=== PATIENT | male | born 1965 | race Caucasian/White ===

== ENCOUNTER 2016-09-22 08:44 | Emergency (ER) | payer BC ==
[~2016-09-22] VITALS: Ht 175.3 cm; Wt 94.8 kg
[~2016-09-22 08:44] MED LIST: ACET-1256 PO; CIPR-255 PO; MULT-506 PO; PRLSR20 PO
[2016-09-22 08:48] VITALS: TEMP 37.2; Ht 175.3 cm; Wt 94.8 kg
[2016-09-22] MEDS ORDERED: KETOROLAC TROMETHAMINE 30 MG/ML VIAL IV STA (09:07)
[2016-09-22] MEDS ORDERED: SODIUM CHLORIDE 0.9% 1000ML 1,000 ML IV STA (09:07)
[2016-09-22] MEDS ORDERED: ONDANSETRON INJ 2 MG/ML 2 ML VIAL IV STA (09:07)
--- NOTE | 2016-09-22 09:11 | EMERGENCY ROOM VISIT NOTE ---
History Report prepared by Andrea: Ethan Portillo Under the Supervision of: Brenda RankinO. First contact with patient: 08:53 Chief Complaint: ILLNESS Stated Complaint: FEVER, PAIN IN LOWER BACK/GROIN AREA X 4 DAYS History of Present Illness The patient is a 51 year old male who presents to the Emergency Room with complaints of flank pain. The patient states that 3-4 days ago he started noticing subjective fever. He has been taking Motrin and Tylenol with good relief of the symptoms but he started noticing lower back pain earlier today. He states the pain is mostly in the lower back but goes around to his right groin. He denies having any rash. He states his feels similar to when he is had kidney stones in the past. He states he's had some urinary symptoms including frequency as well as dysuria. He denies having any vomiting but did notice nausea. He denies having any chest pain but did experience some cough recently he also had some rhinorrhea could be consistent with an upper respiratory infection but when the back pain started he felt was consistent with a kidney stones we presented to the emergency department today. He states the pain is mild at this time. It is not worsened with movement. He denies having any radicular symptoms such as lower extremity numbness or weakness. The patient does not have a headache. He currently does not have a primary care physician because his primary care physician retired but tried to set up an appointment and was not able to set up an appointment quickly enough. Source of History: patient Onset: 3-4 days ago Position: other (flank) Symptom Intensity: mild Associated Symptoms: + back pain, + cough, + fevers, + nausea, + urinary symptoms, No chest pain, No headache, No numbness, No rash, No vomiting, No weakness Review of Systems See HPI for pertinent positives & negatives. A total of 10 systems reviewed and were otherwise negative. Past Medical & Surgical Medical Problems: (1) Diverticular disease of colon (2) Diverticulitis (3) s/p appendectomy (4) s/p partial colectomy Family History Cancer Diabetes mellitus Gallbladder disease Hypertension Kidney disease Kidney stones Social History Smoking Status: Never Smoker Alcohol Use: occasionally Drug Use: none Marital Status: Occupation Status: employed Current/Historical Medications Scheduled Multivitamin (Multivitamin), 1 TAB PO DAILY Omeprazole (Prilosec), 20 MG PO DAILY Ranitidine Hcl (Zantac), 150 MG PO BID Scheduled PRN Acetaminophen (Tylenol), 1,000 MG PO for Pain Allergies Coded Allergies: No Known Allergies (Unverified , 09/22/16) Physical Exam Vital Signs Date Time Temp Pulse Resp B/P Pulse Ox O2 Delivery O2 Flow Rate FiO2 09/22/16 10:36 69 18 94/49 95 Room Air 09/22/16 08:48 37.2 99 18 127/85 95 Room Air Physical Exam GENERAL: Patient is awake alert in no acute distress patient is resting comfortably and showing no signs of anxiety EYES: The conjunctivae are clear. The pupils are round and reactive. EARS, NOSE, MOUTH AND THROAT: The nose is without any evidence of any deformity. Mucous membranes are moist tongue is midline NECK: The neck is nontender and supple. RESPIRATORY: Normal respiratory effort is noted there is no evidence of wheezing rhonchi or rales CARDIOVASCULAR: Regular rate and rhythm noted there no murmurs rubs or gallops normal S1 normal S2 GASTROINTESTINAL: The abdomen is soft. Bowel sounds are present in all quadrants. Abdomen is nontender BACK: No midline tenderness was noted. Mild right CVA tenderness was noted to percussion but range of motion appeared intact. MUSCULOSKELETAL/EXTREMITIES: There is no evidence of gross deformity full range of motion is noted in the hips and shoulders SKIN: There is no obvious evidence of any rash. There are no petechiae, pallor or cyanosis noted. NEUROLOGIC: Patient is awake alert and oriented x3 strength is symmetric patellar reflexes are 2+ bilaterally Medical Decision & Procedures ER Provider Diagnostic Interpretation: Radiology results as stated below per my review and radiologist interpretation: CHEST ONE VIEW PORTABLE CLINICAL HISTORY: Abdominal pain. COMPARISON STUDY: Chest radiograph August 03, 2012. FINDINGS: Lung volumes are normal. No consolidation is identified. There is no evidence of pulmonary edema. Cardiac size is within normal limits. No pneumothorax or pleural effusion is present. IMPRESSION: No acute cardiopulmonary findings. Electronically signed by: Elvis Hyde M.D. 09/22/2016 10:04 AM Dictated Date/Time: 09/22/2016 10:03 AM ABDOMEN AND PELVIS CT WITHOUT CONTRAST CT DOSE: 492.19 mGy.cm HISTORY: Right abdominal pain right flank pain TECHNIQUE: Multiaxial CT images of the abdomen and pelvis were performed without contrast. COMPARISON STUDY: 05/17/2014 FINDINGS: Lung bases are clear. Liver spleen and pancreas are unremarkable. Potential gastric wall thickening with a trace amount of pericolonic infiltrative change. This is best seen transaxial image 33 Small nonobstructing lower pole left renal calcification. No evidence for an obstructing urinary tract calculus. Bowel pattern is remarkable for scattered diverticuli. There has been a mid sigmoid anastomosis. Bladder is midline but relatively collapsed. There is no free fluid within the pelvic cul-de-sac. I history the appendix has been removed. IMPRESSION: 1. Gastric wall thickening raising the possibility of gastritis. 2. Endoscopic evaluation of the stomach is suggested. 3. Small nonobstructing lower pole left renal calcification. 4. No evidence for an obstructing urinary tract calculus. Electronically signed by: Angel Rosenberg M.D. 09/22/2016 9:48 AM Dictated Date/Time: 09/22/2016 9:41 AM Laboratory Results 09/22/16 09:05 Red Blood Count 4.96, Mean Corpuscular Volume 88.5, Mean Corpuscular Hemoglobin 32.1, Mean Corpuscular Hemoglobin Concent 36.2, Mean Platelet Volume 9.8, Neutrophils (%) (Auto) 60.4, Lymphocytes (%) (Auto) 26.9, Monocytes (%) (Auto) 12.7, Eosinophils (%) (Auto) 0.0, Basophils (%) (Auto) 0.0, Neutrophils # (Auto ) 1.71, Lymphocytes # (Auto) 0.76, Monocytes # (Auto) 0.36, Eosinophils # (Auto ) 0.00, Basophils # (Auto) 0.00 09/22/16 09:05 Test 09/22/16 09:05 09/22/16 09:26 White Blood Count 2.83 K/uL (4.8-10.8) Red Blood Count 4.96 M/uL (4.7-6.1) Hemoglobin 15.9 g/dL (14.0-18.0) Hematocrit 43.9 % (42-52) Mean Corpuscular Volume 88.5 fL (80-100) Mean Corpuscular Hemoglobin 32.1 pg (25-34) Mean Corpuscular Hemoglobin Concent 36.2 g/dl (32-36) Platelet Count 127 K/uL (130-400) Mean Platelet Volume 9.8 fL (7.4-10.4) Neutrophils (%) (Auto) 60.4 % Lymphocytes (%) (Auto) 26.9 % Monocytes (%) (Auto) 12.7 % Eosinophils (%) (Auto) 0.0 % Basophils (%) (Auto) 0.0 % Neutrophils # (Auto) 1.71 K/uL (1.4-6.5) Lymphocytes # (Auto) 0.76 K/uL (1.2-3.4) Monocytes # (Auto) 0.36 K/uL (0.11-0.59) Eosinophils # (Auto) 0.00 K/uL (0-0.5) Basophils # (Auto) 0.00 K/uL (0-0.2) RDW Standard Deviation 40.3 fL (36.4-46.3) RDW Coefficient of Variation 12.5 % (11.5-14.5) Immature Granulocyte % (Auto) 0.0 % Immature Granulocyte # (Auto) 0.00 K/uL (0.00-0.02) Anion Gap 7.0 mmol/L (3-11) Est Creatinine Clear Calc Drug Dose 72.5 ml/min Estimated GFR () 67.9 Estimated GFR (Non- 58.6 BUN/Creatinine Ratio 14.6 (10-20) Calcium Level 8.3 mg/dl (8.5-10.1) Total Bilirubin 0.5 mg/dl (0.2-1) Direct Bilirubin 0.1 mg/dl (0-0.2) Aspartate Amino Transf (AST/SGOT) 39 U/L (15-37) Alanine Aminotransferase (ALT/SGPT) 55 U/L (12-78) Alkaline Phosphatase 61 U/L (45-117) Total Protein 6.9 gm/dl (6.4-8.2) Albumin 3.8 gm/dl (3.4-5.0) Lipase 233 U/L (73-393) Urine Color DK YELLOW Urine Appearance CLEAR (CLEAR) Urine pH 5.5 (4.5-7.5) Urine Specific Leary > 1.045 (1.000-1.030) Urine Protein 1+ (NEG) Urine Glucose (UA) NEG (NEG) Urine Ketones TRACE (NEG) Urine Occult Blood NEG (NEG) Urine Nitrite NEG (NEG) Urine Bilirubin NEG (NEG) Urine Urobilinogen NEG (NEG) Urine Leukocyte Esterase NEG (NEG) Urine WBC (Auto) 1-5 /hpf (0-5) Urine RBC (Auto) 0-4 /hpf (0-4) Urine Hyaline Casts (Auto) 5-10 /lpf (0-5) Urine Epithelial Cells (Auto) 10-20 /lpf (0-5) Urine Bacteria (Auto) NEG (NEG) Laboratory results per my review. Medications Administered Medications (Trade) Dose Ordered Sig/Abbie Route Start Time Stop Time Status Last Admin Dose Admin Ketorolac Tromethamine 30 mg 30 mg NOW STAT IV 09/22/16 09:07 09/22/16 09:09 DC 09/22/16 09:20 30 MG Sodium Chloride (Nss 1000ml) 1,000 ml @ 999 mls/hr Q1H1M STAT IV 09/22/16 09:07 09/22/16 10:10 DC 09/22/16 09:20 999 MLS/HR Ondansetron HCl (Zofran Inj) 4 mg NOW STAT IV 09/22/16 09:07 09/22/16 09:09 DC 09/22/16 09:21 4 MG ED Course 0853: The patient was evaluated in room B5. A complete history and physical examination were performed. 0907: Zofran Inj 4mg IV, NSS 1,000 ml @ 999 mls/hr IV, Toradol Inj 30mg IV 1018: Upon reevaluation, the patient is feeling better. I discussed the results and treatment plan with him. He verbalized agreement of the treatment plan. He was discharged home. Medical Decision Prior records/ancillary studies reviewed. Triage Nursing notes reviewed. The patient's history was concerning for back pain. Differential diagnosis: Etiologies such as musculoskeletal, disc herniation, fracture, aortic disease, metastatic disease, cord compression, discitis, infection, renal colic, gastrointestinal, acute exacerbation of chronic back pain, sciatica, cauda equina, as well as others were entertained. The patient is a 51-year-old male who presented to the emergency department for evaluation of back pain. The patient states that he had a subjective fever over the last few days. He has been taking Motrin and Tylenol. He also notices low back pain. The back pain is mostly on the left side and radiates to the left testicle. There is no sign of shingles on physical exam. The patient did not have midline tenderness. He came to the emergency department today because he was concerned he may have a kidney stone. The patient did not request have any medicine for pain because he only had mild pain. He was found have a low white blood cell count and a low platelet count. I do feel that this points to a viral source for his infection at this time. I discussed the patient's laboratory and radiographic studies with him including the findings on CAT scan in his stomach. He was started on Zantac and encouraged to continue taking his Prilosec. He was also encouraged to continue all medications as prescribed. He was also encouraged to follow-up with his family doctor this week for reevaluation as well as a referral to gastroenterology and repeat laboratory studies. He was also encouraged to return to the emergency Department immediately if symptoms change worsen or the need arises. Impression Primary Impression: Fever Additional Impressions: Thrombocytopenia Back pain Viral syndrome Scribe Attestation The scribe's documentation has been prepared under my direction and personally reviewed by me in its entirety. I confirm that the note above accurately reflects all work, treatment, procedures, and medical decision making performed by me. Departure Information Dispostion Home / Self-Care Prescriptions Ranitidine Hcl (ZANTAC) 150 Mg Tab 150 MG PO BID, #60 TAB Prov: Heriberto Blunt, DO 09/22/16 Referrals No Doctor, Assigned (PCP) Forms HOME CARE DOCUMENTATION FORM, IMPORTANT VISIT INFORMATION, WORK / SCHOOL INSTRUCTIONS, Work Instructions Patient Instructions ED Fever Control, My [facility] Additional Instructions Continue all medications as prescribed. Drink plenty of clear liquids and keep herself well-hydrated. Continue using Motrin and Tylenol as directed for fever and pain. Follow-up with your family as soon as possible. I would recommend a repeat of your CBC in 48 hours to recheck your white blood cell count and her platelet count. Return to the emergency department immediately if symptoms change worsen or the need arises. Problem Qualifiers Primary Impression: Fever Fever type: unspecified Qualified Codes: R50.9 - Fever, unspecified Additional Impressions: Back pain Back pain location: low back pain Chronicity: acute Back pain laterality: left Sciatica presence: without sciatica Qualified Codes: M54.5 - Low back pain
[2016-09-22 09:15] LABS: COMPLETE YES; HEMATOCRIT 43.9 % (42-52); LYMPH % 26.9 %; LYMPH ABS # 0.76 K/uL (1.2-3.4); MEAN CELL VOLUME 88.5 fL (80-100); MEAN CORPUSCULAR HEMOGLOBIN 32.1 pg (25-34); MEAN CORPUSCULAR HGB CONC 36.2 g/dl (32-36); MEAN PLATELET VOLUME 9.8 fL (7.4-10.4); MONO % 12.7 %; NEUT % 60.4 %; PLATELET COUNT 127 K/uL (130-400); RED BLOOD COUNT 4.96 M/uL (4.7-6.1); WHITE BLOOD COUNT 2.83 K/uL (4.8-10.8)
[2016-09-22 09:34] LABS: BUN/CREATININE RATIO 14.6 (10-20); CALCIUM 8.3 mg/dl (8.5-10.1); CREATININE 1.4 mg/dl (0.60-1.40); POTASSIUM 3.8 mmol/L (3.5-5.1)
--- NOTE | 2016-09-22 09:49 | DIAGNOSTIC IMAGING REPORT ---
ABDOMEN AND PELVIS CT WITHOUT CONTRAST CT DOSE: 492.19 mGy.cm HISTORY: Right abdominal pain right flank pain TECHNIQUE: Multiaxial CT images of the abdomen and pelvis were performed without contrast. COMPARISON STUDY: 05/17/2014 FINDINGS: Lung bases are clear. Liver spleen and pancreas are unremarkable. Potential gastric wall thickening with a trace amount of pericolonic infiltrative change. This is best seen transaxial image 33 Small nonobstructing lower pole left renal calcification. No evidence for an obstructing urinary tract calculus. Bowel pattern is remarkable for scattered diverticuli. There has been a mid sigmoid anastomosis. Bladder is midline but relatively collapsed. There is no free fluid within the pelvic cul-de-sac. I history the appendix has been removed. IMPRESSION: 1. Gastric wall thickening raising the possibility of gastritis. 2. Endoscopic evaluation of the stomach is suggested. 3. Small nonobstructing lower pole left renal calcification. 4. No evidence for an obstructing urinary tract calculus. Electronically signed by: Angel Rosenberg M.D. 09/22/2016 9:48 AM Dictated Date/Time: 09/22/2016 9:41 AM
[2016-09-22 09:55] LABS: URINE APPEARANCE CLEAR (CLEAR); URINE BILIRUBIN NEG (NEG); URINE COLOR DK YELLOW; URINE NITRITE NEG (NEG); URINE PH 5.5 (4.5-7.5); URINE SPECIFIC GRAVITY > 1.045 (1.000-1.030); UROBILINOGEN NEG (NEG)
[2016-09-22 10:00] LABS: MANUAL MICROSCOPIC REQUIRED? NO; REVIEW REQ? NO
--- NOTE | 2016-09-22 10:05 | DIAGNOSTIC IMAGING REPORT ---
CHEST ONE VIEW PORTABLE CLINICAL HISTORY: Abdominal pain. COMPARISON STUDY: Chest radiograph August 03, 2012. FINDINGS: Lung volumes are normal. No consolidation is identified. There is no evidence of pulmonary edema. Cardiac size is within normal limits. No pneumothorax or pleural effusion is present. IMPRESSION: No acute cardiopulmonary findings. Electronically signed by: Elvis Hyde M.D. 09/22/2016 10:04 AM Dictated Date/Time: 09/22/2016 10:03 AM
[2016-09-22] MEDS ORDERED: RANI150T3 PO (10:24)
[2016-09-22 10:36] VITALS: BP 94/49; PULSE 69; O2SAT 95
== END 2016-09-22 10:45 | disposition home or self-care (01) ==
LOC: C.EDB 08:48
DX: R50.9 Fever, unspecified (principal); D69.6 Thrombocytopenia, unspecified; M54.5 Low back pain; B34.9 Viral infection, unspecified; Z90.89 Acquired absence of other organs; Z90.49 Acquired absence of other specified parts of digestive tract; Z80.9 Family history of malignant neoplasm, unspecified; Z83.3 Family history of diabetes mellitus; Z82.49 Family history of ischemic heart disease and other diseases of the circulatory system; Z84.1 Family history of disorders of kidney and ureter

== ENCOUNTER → 2016-09-27 | Outpatient (CLI) | payer BC ==
[~2016-09-27] MED LIST changes: +ASPI81TA28 PO; +METR-163 PO; +RANI150T3 PO
[2016-09-27 12:52] LABS: BASO % 0.3 %; BASO ABS # 0.01 K/uL (0-0.2); COMPLETE YES; EOS % 0.6 %; HEMATOCRIT 42.8 % (42-52); LYMPH % 49.2 %; LYMPH ABS # 1.58 K/uL (1.2-3.4); MEAN CELL VOLUME 86.6 fL (80-100); MEAN CORPUSCULAR HGB CONC 35.7 g/dl (32-36); MEAN PLATELET VOLUME 10.5 fL (7.4-10.4); MONO % 11.8 %; NEUT % 38.1 %; PLATELET COUNT 114 K/uL (130-400); RED BLOOD COUNT 4.94 M/uL (4.7-6.1); WHITE BLOOD COUNT 3.21 K/uL (4.8-10.8)
[2016-09-27 13:05] LABS: URINE APPEARANCE CLEAR (CLEAR); URINE BILIRUBIN NEG (NEG); URINE COLOR YELLOW; URINE NITRITE NEG (NEG); URINE SPECIFIC GRAVITY 1.022 (1.000-1.030); UROBILINOGEN NEG (NEG)
[2016-09-27 13:13] LABS: MANUAL MICROSCOPIC REQUIRED? NO; REVIEW REQ? NO
[2016-09-27 13:27] LABS: CHOLESTEROL/HDL RATIO 3.4; PROSTATE SPECIFIC ANTIGEN 0.756 ng/ml (0.000-4.000); THYROID STIMULATING HORMONE 2.16 uIu/ml (0.300-4.500)
== END | disposition home or self-care (01) ==
LOC: C.LABPBG 07:39
PROVIDERS: ATTEND Neuromusculoskeletal Medicine & OMM
DX: Z00.00 Encounter for general adult medical examination without abnormal findings (principal); D72.819 Decreased white blood cell count, unspecified; R39.89 Other symptoms and signs involving the genitourinary system

== ENCOUNTER → 2016-10-04 | Outpatient (CLI) | payer BC ==
[2016-10-04 12:46] LABS: BASO % 0.2 %; BASO ABS # 0.01 K/uL (0-0.2); EOS % 2.4 %; HEMATOCRIT 41.1 % (42-52); IG% 0.4 %; LYMPH % 30.5 %; LYMPH ABS # 1.64 K/uL (1.2-3.4); MEAN CELL VOLUME 84.7 fL (80-100); MEAN CORPUSCULAR HEMOGLOBIN 30.3 pg (25-34); MEAN CORPUSCULAR HGB CONC 35.8 g/dl (32-36); MEAN PLATELET VOLUME 9.6 fL (7.4-10.4); MONO % 8.4 %; NEUT % 58.1 %; PLATELET COUNT 295 K/uL (130-400); RED BLOOD COUNT 4.85 M/uL (4.7-6.1); WHITE BLOOD COUNT 5.37 K/uL (4.8-10.8)
[2016-10-04 15:02] LABS: COMPLETE YES
== END | disposition home or self-care (01) ==
LOC: C.LABPBG 07:28
PROVIDERS: ATTEND Neuromusculoskeletal Medicine & OMM
DX: D69.6 Thrombocytopenia, unspecified (principal)

== ENCOUNTER 2016-12-23 17:14 | Emergency (ER) | payer BC ==
[~2016-12-23] VITALS: Ht 175.3 cm; Wt 91.5 kg
[~2016-12-23 17:14] MED LIST changes: -ASPI81TA28 PO; -CIPR-255 PO; -METR-163 PO
[2016-12-23 17:20] VITALS: TEMP 36.9; Ht 175.3 cm; Wt 91.5 kg
[2016-12-23] MEDS ORDERED: KETOROLAC TROMETHAMINE 30 MG/ML VIAL IV STA (17:28)
[2016-12-23] MEDS ORDERED: SODIUM CHLORIDE 0.9% 1000ML 1,000 ML IV STA (17:28)
[2016-12-23 17:56] LABS: BASO % 0.1 %; BASO ABS # 0.01 K/uL (0-0.2); COMPLETE YES; EOS % 1.3 %; HEMATOCRIT 42.9 % (42-52); IG% 0.2 %; MEAN CELL VOLUME 87.4 fL (80-100); MEAN CORPUSCULAR HEMOGLOBIN 30.1 pg (25-34); MEAN CORPUSCULAR HGB CONC 34.5 g/dl (32-36); MEAN PLATELET VOLUME 9.5 fL (7.4-10.4); MONO % 6.7 %; NEUT % 77.7 %; PLATELET COUNT 229 K/uL (130-400); RED BLOOD COUNT 4.91 M/uL (4.7-6.1); WHITE BLOOD COUNT 10.72 K/uL (4.8-10.8)
[2016-12-23] MEDS ORDERED: ASPI81TA28 PO (18:12)
[2016-12-23 18:14] LABS: PARTIAL THROMBOPLASTIN RATIO 1.1; PROTHROMBIN TIME (PATIENT) 10.9 SECONDS (9.0-12.0)
[2016-12-23 18:16] LABS: URINE APPEARANCE CLEAR (CLEAR); URINE BILIRUBIN NEG (NEG); URINE COLOR YELLOW; URINE EPITHELIAL CELL AUTO 0-5 /lpf (0-5); URINE NITRITE NEG (NEG); URINE PH 5.5 (4.5-7.5); URINE SPECIFIC GRAVITY 1.018 (1.000-1.030); UROBILINOGEN NEG (NEG); ZZUR CULT IF INDIC CLEAN CATCH NO
[2016-12-23 18:20] LABS: BUN/CREATININE RATIO 12.1 (10-20); CALCIUM 8.7 mg/dl (8.5-10.1); CREATININE 1.2 mg/dl (0.60-1.40); POTASSIUM 3.4 mmol/L (3.5-5.1)
[2016-12-23 18:21] LABS: MANUAL MICROSCOPIC REQUIRED? NO; REVIEW REQ? NO
--- NOTE | 2016-12-23 18:42 | DIAGNOSTIC IMAGING REPORT ---
ABDOMEN AND PELVIS CT WITHOUT CONTRAST CT DOSE: 537.45 mGy.cm HISTORY: Pain. Nausea. suprapubic / infraumbilical abd pain x 4 days TECHNIQUE: Multiaxial CT images of the abdomen and pelvis were performed without contrast. COMPARISON STUDY: 09/22/2016 FINDINGS: Lung bases are clear. Liver spleen and pancreas are unremarkable. Kidneys negative for hydronephrosis. Bowel pattern within the abdomen is nonobstructive. Examination of the pelvis demonstrates wall thickening and edematous change of the sigmoid colon proximal to an anastomotic line. Several diverticuli are present. There is a moderate pericolonic infiltrative change. There is no evidence for abscess collection or obstructive change. IMPRESSION: 1. Acute proximal sigmoid diverticulitis. 2. No evidence for abscess collection or obstruction. Electronically signed by: Angel Rosenberg M.D. 12/23/2016 6:40 PM Dictated Date/Time: 12/23/2016 6:37 PM
[2016-12-23 19:15] VITALS: BP 146/81; PULSE 79; O2SAT 96
[2016-12-23] MEDS ORDERED: CIPR-255 PO (19:15)
[2016-12-23] MEDS ORDERED: METR-163 PO (19:15)
[2016-12-23] MEDS ORDERED: METRONIDAZOLE 250 MG TAB PO STA (19:16)
[2016-12-23] MEDS ORDERED: CIPROFLOXACIN 500 MG TAB PO STA (19:16)
--- NOTE | 2016-12-23 19:16 | EMERGENCY ROOM VISIT NOTE ---
History Report prepared by Andrea: Silvino Everett Under the Supervision of: Dr. Avelino Britton D.O. First contact with patient: 17:22 Chief Complaint: ABDOMINAL PAIN Stated Complaint: ABDOMINAL PAIN History of Present Illness The patient is a 51 year old male with a history of diverticulitis who presents to the Emergency Room with complaints of persistent lower abdominal pain that started 4 days ago. He says that this feels like another bout of diverticulitis. The patient states that he had surgery for the diverticulitis and had 9 inches of his colon removed. He states that he had a colonoscopy after a bout of diverticulitis which occurred after the surgery, and the patient was told that he still has one spot that is "messed up", but is nothing too bad to be operated on currently. The patient notes that his lower abdominal pain is below his belly button and radiates down into his lower grown. He says that he gets intermittent sharp pain. The patient says that eating makes his pain a bit worse, so he has not been eating much. The patient took Metamucil yesterday, but the pain worsened. He had a few bowel movements today, but he says that he feels a bit blocked. The patient denies any nausea, vomiting, shortness of breath, or urinary symptoms. He has a history of an appendectomy. He still has his gallbladder. Source of History: patient Onset: 4 days ago Position: abdomen (lower) Quality: sharp Timing: other (persistent) Modifying Factors (Worsening): eating Associated Symptoms: No SOB, No nausea, No urinary symptoms, No vomiting Note: Associated symptoms: Pain radiates into groin area. Has had a few bowel movements, but feels a bit blocked. Review of Systems See HPI for pertinent positives & negatives. A total of 10 systems reviewed and were otherwise negative. Past Medical & Surgical Medical Problems: (1) Diverticular disease of colon (2) Diverticulitis (3) s/p appendectomy (4) s/p partial colectomy Family History Cancer Diabetes mellitus Gallbladder disease Hypertension Kidney disease Kidney stones Social History Smoking Status: Never Smoker Alcohol Use: occasionally Drug Use: none Marital Status: Occupation Status: employed Current/Historical Medications Scheduled Aspirin (Aspirin Ec), 81 MG PO DAILY Ciprofloxacin Hcl (Cipro), 500 MG PO BID Metronidazole (Flagyl), 500 MG PO BID Multivitamin (Multivitamin), 1 TAB PO DAILY Omeprazole (Prilosec), 20 MG PO DAILY Allergies Coded Allergies: No Known Allergies (Unverified , 12/23/16) Physical Exam Vital Signs Date Time Temp Pulse Resp B/P Pulse Ox O2 Delivery O2 Flow Rate FiO2 12/23/16 17:20 36.9 69 18 143/96 98 Room Air Physical Exam CONSTITUTIONAL/VITAL SIGNS: Reviewed / noted above. GENERAL: Non-toxic in appearance. INTEGUMENTARY: Warm, dry, and [place]. HEAD: Normocephalic. EYES: without scleral icterus or trauma. ENT/OROPHARYNX: clear and moist. LYMPHADENOPATHY/NECK: Is supple without lymphadenopathy or meningismus. RESPIRATORY: Lungs clear and equal. CARDIOVASCULAR: Regular rate and rhythm. GI/ABDOMEN: Soft. Tenderness over the suprapubic/infraumbilical area. No organomegaly or pulsatile mass. No rebound or guarding. Normal bowel sounds. EXTREMITIES: Warm and well perfused. BACK: No CVA tenderness. NEUROLOGICAL: Intact without focal deficits. PSYCHIATRIC: normal affect. MUSCULOSKELETAL: Normally developed with good muscle tone. Medical Decision & Procedures ER Provider Diagnostic Interpretation: CT results as stated below per my review and radiologist interpretation: ABDOMEN AND PELVIS CT WITHOUT CONTRAST CT DOSE: 537.45 mGy.cm HISTORY: Pain. Nausea. suprapubic / infraumbilical abd pain x 4 days TECHNIQUE: Multiaxial CT images of the abdomen and pelvis were performed without contrast. COMPARISON STUDY: 09/22/2016 FINDINGS: Lung bases are clear. Liver spleen and pancreas are unremarkable. Kidneys negative for hydronephrosis. Bowel pattern within the abdomen is nonobstructive. Examination of the pelvis demonstrates wall thickening and edematous change of the sigmoid colon proximal to an anastomotic line. Several diverticuli are present. There is a moderate pericolonic infiltrative change. There is no evidence for abscess collection or obstructive change. IMPRESSION: 1. Acute proximal sigmoid diverticulitis. 2. No evidence for abscess collection or obstruction. Electronically signed by: Angel Rosenberg M.D. 12/23/2016 6:40 PM Dictated Date/Time: 12/23/2016 6:37 PM Laboratory Results 12/23/16 17:45 Red Blood Count 4.91, Mean Corpuscular Volume 87.4, Mean Corpuscular Hemoglobin 30.1, Mean Corpuscular Hemoglobin Concent 34.5, Mean Platelet Volume 9.5, Neutrophils (%) (Auto) 77.7, Lymphocytes (%) (Auto) 14.0, Monocytes (%) (Auto) 6.7, Eosinophils (%) (Auto) 1.3, Basophils (%) (Auto) 0.1, Neutrophils # (Auto) 8.33, Lymphocytes # (Auto) 1.50, Monocytes # (Auto) 0.72, Eosinophils # (Auto) 0.14, Basophils # (Auto) 0.01 12/23/16 17:45 Test 12/23/16 17:45 White Blood Count 10.72 K/uL (4.8-10.8) Red Blood Count 4.91 M/uL (4.7-6.1) Hemoglobin 14.8 g/dL (14.0-18.0) Hematocrit 42.9 % (42-52) Mean Corpuscular Volume 87.4 fL (80-100) Mean Corpuscular Hemoglobin 30.1 pg (25-34) Mean Corpuscular Hemoglobin Concent 34.5 g/dl (32-36) Platelet Count 229 K/uL (130-400) Mean Platelet Volume 9.5 fL (7.4-10.4) Neutrophils (%) (Auto) 77.7 % Lymphocytes (%) (Auto) 14.0 % Monocytes (%) (Auto) 6.7 % Eosinophils (%) (Auto) 1.3 % Basophils (%) (Auto) 0.1 % Neutrophils # (Auto) 8.33 K/uL (1.4-6.5) Lymphocytes # (Auto) 1.50 K/uL (1.2-3.4) Monocytes # (Auto) 0.72 K/uL (0.11-0.59) Eosinophils # (Auto) 0.14 K/uL (0-0.5) Basophils # (Auto) 0.01 K/uL (0-0.2) RDW Standard Deviation 38.5 fL (36.4-46.3) RDW Coefficient of Variation 12.0 % (11.5-14.5) Immature Granulocyte % (Auto) 0.2 % Immature Granulocyte # (Auto) 0.02 K/uL (0.00-0.02) Prothrombin Time 10.9 SECONDS (9.0-12.0) Prothromb Time International Ratio 1.0 (0.9-1.1) Activated Partial Thromboplast Time 29.2 SECONDS (21.0-31.0) Partial Thromboplastin Ratio 1.1 Urine Color YELLOW Urine Appearance CLEAR (CLEAR) Urine pH 5.5 (4.5-7.5) Urine Specific Porter 1.018 (1.000-1.030) Urine Protein NEG (NEG) Urine Glucose (UA) NEG (NEG) Urine Ketones NEG (NEG) Urine Occult Blood NEG (NEG) Urine Nitrite NEG (NEG) Urine Bilirubin NEG (NEG) Urine Urobilinogen NEG (NEG) Urine Leukocyte Esterase NEG (NEG) Urine WBC (Auto) 1-5 /hpf (0-5) Urine RBC (Auto) 0-4 /hpf (0-4) Urine Hyaline Casts (Auto) 0 /lpf (0-5) Urine Epithelial Cells (Auto) 0-5 /lpf (0-5) Urine Bacteria (Auto) NEG (NEG) Anion Gap 6.0 mmol/L (3-11) Est Creatinine Clear Calc Drug Dose 83.2 ml/min Estimated GFR () 81.8 Estimated GFR (Non- 70.6 BUN/Creatinine Ratio 12.1 (10-20) Calcium Level 8.7 mg/dl (8.5-10.1) Total Bilirubin 0.9 mg/dl (0.2-1) Direct Bilirubin 0.2 mg/dl (0-0.2) Aspartate Amino Transf (AST/SGOT) 33 U/L (15-37) Alanine Aminotransferase (ALT/SGPT) 40 U/L (12-78) Alkaline Phosphatase 69 U/L (45-117) Total Protein 7.2 gm/dl (6.4-8.2) Albumin 3.9 gm/dl (3.4-5.0) Lipase 146 U/L (73-393) Laboratory results as stated above per my review. Medications Administered Medications (Trade) Dose Ordered Sig/Abbie Route Start Time Stop Time Status Last Admin Dose Admin Sodium Chloride (Nss 1000ml) 1,000 ml @ 999 mls/hr Q1H1M STAT IV 12/23/16 17:28 12/23/16 18:28 DC 12/23/16 17:56 999 MLS/HR Ketorolac Tromethamine (Toradol Inj) 30 mg NOW STAT IV 12/23/16 17:28 12/23/16 17:31 DC 12/23/16 17:56 30 MG ED Course 1723: Previous medical records were reviewed. The patient was evaluated in room C7. A complete history and physical examination was performed. 1727: Ordered Toradol Inj 30 mg IV, NSS 1000 ml @ 999 mls/hr IV. 1915: Ordered Flagyl Tab 500 mg PO, Cipro Tab 500 mg PO. 1917: On reevaluation, the patient is resting comfortably. I discussed the results and findings with the patient. He verbalized agreement of the treatment plan. He was discharged home. Medical Decision Differential considered: pancreatitis, hepatitis, or acute cholecystitis, AAA, UTI, pyelonephritis, kidney stones, diverticulitis, shingles, bowel obstruction mesenteric ischemia, intussusception,hernia, testicular torsion. Medication Reconciliation: I attest that I have personally reviewed the patient' s current medication list. Blood pressure Screening: Patient was found to have normal blood pressure on screening and does not require follow-up. This is a 51-year-old male who presents to the ED with a chief complaint of abdominal pain in the suprapubic/infraumbilical area. His symptoms started 4 days ago on Tuesday. He reports a past history of partial colectomy related to diverticulitis and also has had his appendix removed in the past. The patient reports that his symptoms seem similar to his diverticulitis in the past. His vital signs are normal. His physical exam reveals some tenderness in the infraumbilical and suprapubic area. CBC and complete metabolic panel were normal. Urine did not show infection. CT scan of the abdomen and pelvis reveals findings suggesting acute sigmoid diverticulitis. The patient was started on Cipro and Flagyl. He was given Toradol for pain. The patient is felt to be stable for discharge. Impression Primary Impression: Acute diverticulitis Scribe Attestation The scribe's documentation has been prepared under my direction and personally reviewed by me in its entirety. I confirm that the note above accurately reflects all work, treatment, procedures, and medical decision making performed by me. Departure Information Dispostion Home / Self-Care Prescriptions Metronidazole (Flagyl) 500 Mg Tab 500 MG PO BID, #20 TAB Prov: Avelino Britton D.O. 12/23/16 Ciprofloxacin Hcl (CIPRO) 500 Mg Tab 500 MG PO BID, #20 TAB Prov: Avelino Britton D.O. 12/23/16 Referrals Porter Jc D.O. (PCP) Patient Instructions Diverticulitis Dc, [facility] Additional Instructions Follow-up with your doctor for further care and evaluation in 1-6 days. Return to the emergency department for worsening or new symptoms or any concerns. You have been examined and treated today on an emergency basis only. This is not a substitute for, or an effort to provide, complete comprehensive medical care. It is impossible to recognize and treat all injuries or illnesses in a single emergency department visit. It is therefore important that you follow up closely with your doctor. Call as soon as possible for an appointment. Cipro and Flagyl as prescribed.
== END 2016-12-23 19:38 | disposition home or self-care (01) ==
LOC: C.EDB 17:16 → C.EDC 19:38
DX: K57.92 Diverticulitis of intestine, part unspecified, without perforation or abscess without bleeding (principal); K57.90 Diverticulosis of intestine, part unspecified, without perforation or abscess without bleeding; Z98.890 Other specified postprocedural states; Z90.49 Acquired absence of other specified parts of digestive tract; Z79.82 Long term (current) use of aspirin; Z79.899 Other long term (current) drug therapy; Z80.9 Family history of malignant neoplasm, unspecified; Z83.3 Family history of diabetes mellitus; Z83.79 Family history of other diseases of the digestive system; Z82.49 Family history of ischemic heart disease and other diseases of the circulatory system; Z84.1 Family history of disorders of kidney and ureter

== ENCOUNTER → 2017-09-23 | Outpatient (CLI) | payer BC ==
[~2017-09-23] MED LIST changes: -ACET-1256 PO; +ASPI81TA28 PO; +CIPR-255 PO; -RANI150T3 PO
--- NOTE | 2017-09-23 13:37 | DIAGNOSTIC IMAGING REPORT ---
R KNEE 4 OR MORE VIEWS CLINICAL HISTORY: M25.561 Right knee painget a SUNRISE viewright pain COMPARISON: None. DISCUSSION: The bones and joint spaces appear intact. There is no evidence of fracture, dislocation or bony disease. There is no evidence for soft tissue swelling. IMPRESSION: Negative study. The above report was generated using voice recognition software. It may contain grammatical, syntax or spelling errors. Electronically signed by: Angel Rosenberg M.D. 09/23/2017 1:36 PM Dictated Date/Time: 09/23/2017 1:34 PM
== END | disposition home or self-care (01) ==
LOC: C.RAD 13:07
PROVIDERS: ATTEND Physician Assistant
DX: M25.561 Pain in right knee (principal)

== ENCOUNTER 2024-07-23 11:07 | Observation (INO) ==
--- NOTE | 2024-07-13 15:06 | Anesthesiology Consultation ---
Date of Service July 13, 2024 Assessment & Plan (1) Encounter for pre-operative examination: - Infectious disease screening: Per assessment on 07/13/24- No known recent infectious disease contacts or current infectious disease symptoms. - Outpatient joint assessment: Pt currently scheduled for inpatient pathway. If surgeon requests review for outpatient joint pathway, patient is not recommended candidate for outpatient joint program from anesthesia standpoint based on available information. Chart Review Chart Review: Acceptable Risk for Surgery and Patient seen in Pre Admission Testing (05/23/24) History Surgery Operation Date: 07/23/24 13:40 Proposed Procedures p Left Total Knee Arthroplasty - Yordy Nobles DO Height/Weight Height: 5 ft 9 in Weight: 105.233 kg Allergies Allergy/AdvReac Type Severity Reaction Status Date / Time No Known Allergies Allergy Verified 07/13/24 14:25 Medications Home Medications Medication Instructions Recorded Confirmed Last Taken multivitamin 1 tab PO QAM 08/23/19 07/13/24 06/17/24 06:00 celecoxib 100 mg capsule (Celebrex) 100 mg PO BID PRN Pain 05/18/24 07/13/24 Unknown omeprazole magnesium 20 mg 20 mg PO QAM 05/18/24 07/13/24 06/18/24 05:15 tablet,delayed release (Prilosec OTC) Creatine Tablets 3 tab PO BID 05/23/24 07/13/24 06/04/24 Past Medical History Medical History (Updated 07/13/24 @ 15:03 by Teresa Kennedy) Arthritis Chondrocalcinosis Esophageal reflux disease History of cardiac murmur as a child No murmur noted into adulthood per patient No murmur noted at PAT evaluation 05/23/24 History of fluid overload (2012) Remote hx of fluid overload in setting of increased IVF for kidney stone management, no issues since (2012) History of nephrolithiasis Hx of diverticulitis of colon Left knee DJD Lumbar degenerative disc disease Medial meniscus tear Moderate obstructive sleep apnea Suspected CHATA per home study. Recommended to have in-hospital sleep study but this has not been completed yet per patient. Per review of available records, 2019 sleep study consistent with moderate CHATA Past Family History Family History Mother Diabetes Gallbladder disease Sister Kidney stones Aunt Breast cancer Father Throat cancer Denies family history of Ovarian cancer Prostate cancer Lung cancer Past Surgical History Surgical History H/O colonoscopy History of cystoscopy History of incisional hernia repair (06/04/21) Open Incisional Hernia Repair History of lithotripsy History of postoperative nausea and vomiting Remote hx following partial colectomy, no issues when preventative antiemetic used subsequently per patient History of tooth extraction S/P appendectomy S/P partial colectomy (2006) sigmoid r/t to diverticulitis (2006) Social History Smoking Status: Never smoker Do You Dip or Chew Tobacco: No (quit 2010) Hx Alcohol Use: Yes Alcohol type: beer, wine and hard liquor alcohol intake frequency: a few times a week Hx Substance Use: No substance use type: does not use Lab Results Anesthesia Preop Results Results Anesthesia Widget: WBC 7.66 K/ul (4.8-10.8) 05/23/24 Hgb 14.8 g/dl (14.0-18.0) 05/23/24 Hct 42.1 % (42.0-52.0) 05/23/24 Plt 227 K/uL (130-400) 05/23/24 Na 138 mmol/L (136-145) 05/23/24 K 3.6 mmol/L (3.5-5.1) 05/23/24 Cl 106 mmol/L (98-107) 05/23/24 CO2 26 mmol/L (21-32) 05/23/24 BUN 26 mg/dl (6-23) H 05/23/24 Creat 1.20 mg/dl (0.6-1.4) 05/23/24 Glucose Level 97 mg/dl (70-99(Fasting)) 05/23/24 PT 10.9 Seconds (9.0-12.0) 05/23/24 PTT 27 Seconds (21-31) 05/23/24 INR 1.0 (0.9-1.1) 05/23/24 Blood Type O Positive 05/23/24 Antibody Screen NEGATIVE 05/23/24 Testing Electrocardiogram Date: 05/23/24 NSR at 67bpm. "Normal ECG" Chest X-Ray Date: 05/23/24 FINDINGS: Cardiac silhouette is mildly enlarged. No pneumothorax, pleural effusion or overt pulmonary edema. Descending thoracic aortic tortuosity. Degenerative changes of the shoulders and spine. IMPRESSION: No acute process.
--- NOTE | 2024-07-19 07:30 | History & Physical Report ---
Date of Service July 19, 2024 Assessment & Plan (1) Left knee DJD: We will proceed with a left total knee arthroplasty. Postoperatively he will be started on aspirin for DVT prophylaxis and kept overnight in the hospital for postop medical management. We will have the hospital set up home health for discharge. History of Present Illness Chief Complaint: Osteoarthritis of the left knee. Primary Care Provider: Marnie Witt DO Myke is a pleasant 59-year-old male who has been dealing with chronic increasing left knee pain. Initial x-rays did not look too bad, so he was sent in for an MRI. The MRI did show a [id number] chondromalacia of the knee. 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 After failing extensive conservative treatment, he has elected to proceed with a left total knee arthroplasty. . Allergies Allergy/AdvReac Type Severity Reaction Status Date / Time No Known Allergies Allergy Verified 07/13/24 14:25 Home Medications Medication Instructions Recorded Confirmed Type multivitamin 1 tab PO QAM 08/23/19 07/13/24 History celecoxib 100 mg capsule (Celebrex) 100 mg PO BID PRN Pain 05/18/24 07/13/24 History omeprazole magnesium 20 mg 20 mg PO QAM 05/18/24 07/13/24 History tablet,delayed release (Prilosec OTC) Creatine Tablets 3 tab PO BID 05/23/24 07/13/24 History Past Med/Surg History Problem List Medial meniscus tear Chondrocalcinosis Left knee DJD Encounter for pre-operative examination Vitamin D deficiency Lumbar degenerative disc disease Esophageal reflux disease Nephrolithiasis Diverticular disease of colon Medical History Moderate obstructive sleep apnea Suspected CHATA per home study. Recommended to have in-hospital sleep study but this has not been completed yet per patient. Per review of available records, 2019 sleep study consistent with moderate CHATA Left knee DJD Chondrocalcinosis History of cardiac murmur as a child No murmur noted into adulthood per patient No murmur noted at PAT evaluation 05/23/24 Hx of diverticulitis of colon Esophageal reflux disease History of nephrolithiasis Lumbar degenerative disc disease Medial meniscus tear History of fluid overload (2012) Remote hx of fluid overload in setting of increased IVF for kidney stone management, no issues since (2012) Arthritis Surgical History History of postoperative nausea and vomiting Remote hx following partial colectomy, no issues when preventative antiemetic used subsequently per patient History of incisional hernia repair (06/04/21) Open Incisional Hernia Repair History of tooth extraction History of cystoscopy History of lithotripsy H/O colonoscopy S/P partial colectomy (2006) sigmoid r/t to diverticulitis (2006) S/P appendectomy Family History Mother Diabetes Gallbladder disease Sister Kidney stones Aunt Breast cancer Father Throat cancer Denies family history of Ovarian cancer Prostate cancer Lung cancer Social History Smoking Status: Never smoker Tobacco Type: Smokeless Tobacco (Dip or Chew) Second Hand Exposure: No; Do You Dip or Chew Tobacco: No (quit 2010); Tobacco Cessation Education Requested by Patient: No Hx Alcohol Use: Yes Alcohol type: beer, wine and hard liquor Alcohol Intake Frequency: 2-3 x/Week Alcohol Intake Frequency Comment: social Hx Substance Use: No Preferred Language: Urdu Communication Ability: Effective Visual Impairment: No Limitations Hearing Ability: Normal Pull Through Hooker Required: No Beliefs That Will Affect Care: None marital status: Current Living Situation: Spouse current occupational status: employed current occupation: [employer] How many Children do You have: 2 Other Information That Helps Us Care for You: No Feels Safe at Home: Yes Safety Concerns: Feels Safe At This Time Childhood Exposure to Second-Hand Smoke: No Diet: regular Diet Comment: regular caffeine: Yes during the past year weight has: increased > 10 lbs Dental Care, Regularly: No Physical Activity Frequency: Daily Physical Activity Frequency Comment: lift weights, run Seatbelt Use: always Sunscreen Use: Yes Assistive Devices: Glasses Review of Systems All systems reviewed & are unremarkable except as noted in HPI & below. Physical Exam On physical exam the left knee, he is a slight varus deformity. Tenderness palpation of the distal medial femoral condyle and over the medial joint line.. Constitutional WD/WN, vitals as above Eyes PERRL, conjunctivae normal, anicteric sclerae ENMT external ear and nose normal, oropharynx normal Neck trachea midline, no thyromegaly Respiratory normal respiratory effort Cardiovascular RRR, no murmur, no edema Gastrointestinal (Abdomen) normal bowel sounds, soft, nontender, no hepatosplenomegaly Psychiatric A+Ox3, euthymic affect Results & Data Results & Data Laboratory Results . Diagnostic Findings X-rays of the left knee show mild medial compartment arthritis with some joint space narrowing. MRI of the left knee shows more severe tricompartmental arthritis mostly located in the medial compartment.. PG Care Time/CCT Total # of Minutes Spent Total Time Spent with Patient: Total time spent is greater than 50% in coordination of care (as documented) at patient's floor/unit and/or counseling patient: Coding Level of Care Code None Diagnoses Left knee DJD M17.12
[~2024-07-23 11:07] MED LIST changes: -ASPI81TA28 PO; +BUPIVACAINE 0.5 % 5 MG/1 ML PF 10ML VIAL ONE; -CIPR-255 PO; -MULT-506 PO; -PRLSR20 PO; +ROPIVACAINE 0.5% 5 MG/ML 30 ML VIAL ONE
--- NOTE | 2024-07-23 12:08 | History & Physical Bridge Note ---
Date of Service July 23, 2024 History & Physical Bridge Note I have examined the patient, reviewed the History & Physical and in the interval since the performance of the History & Physical I have noted the following changes of clinical significance: no changes noted
[2024-07-23] MEDS: LR 60ML/HR IV SCH (12:13)
[2024-07-23] MEDS: ACETAMINOPHEN 500 MG TAB PO SCH (12:13)
[2024-07-23] MEDS: GABAPENTIN 600 MG DOSE PO SCH (12:13)
[2024-07-23] MEDS: FAMOTIDINE 20 MG TAB PO SCH (12:13)
[2024-07-23] MEDS: LR 500ML BOLUS, THEN 15ML/HR IV SCH (12:14)
[2024-07-23] MEDS: dexAMETHasone**PF** 10 MG/ML VIAL IV SCH (12:29)
[2024-07-23] MEDS ORDERED: ePHEDrine sulfate 50 MG/ML AMP IV PRN (13:15)
[2024-07-23] MEDS ORDERED: fentaNYL citrate PF 100 MCG/2 ML VIAL IV PRN (13:15)
[2024-07-23] MEDS ORDERED: ATROPINE SULFATE 0.1 MG/ML 10ML SYR IV PRN (13:15)
[2024-07-23] MEDS ORDERED: ONDANSETRON INJ 2 MG/ML 2 ML VIAL IV PRN ×2 (13:15→14:33)
[2024-07-23] MEDS ORDERED: MIDAZOLAM HCL 1 MG/ML 2ML VIAL ONE (13:18)
[2024-07-23] MEDS ORDERED: PROPOFOL IV EMULSION 10 MG/ML 20 ML VIAL IV ONE ×3 (13:20→14:58)
[2024-07-23] MEDS: TRANEXAMIC ACID 1,000 MG **IV Pre-op IV SCH (13:32)
[2024-07-23] MEDS: ceFAZolin 2000MG 2,000 MG/15 ML SYR IV SCH ×2 (13:42→23:13)
[2024-07-23] MEDS: ORTHO JOINT ANESTHETIC ONE (14:26)
[2024-07-23] MEDS ORDERED: METOCLOPRAMIDE HCL INJ 5 MG/ML 2 ML VIAL IV PRN (14:33)
[2024-07-23] MEDS ORDERED: MAGNESIUM HYDROXIDE SUSP 30 ML UDC PO PRN (14:33)
[2024-07-23] MEDS ORDERED: bisacodyL 10 MG SUPP PR PRN (14:33)
[2024-07-23] MEDS ORDERED: NALOXONE HCL 0.4 MG/1 ML VIAL/CARP IV PRN (14:33)
[2024-07-23] MEDS: TRANEXAMIC ACID 1,000 MG **IV Intra-op IV SCH (14:45)
[2024-07-23] MEDS: ROPIV 0.5% 246mg, Ketorolac 30mg, EPINEPHrine 0.5mg in NSS INFIL SCH (14:52)
--- NOTE | 2024-07-23 15:32 | Operative Report ---
PG Post Operative Report Pre & Post Diagnosis Operation Date: 07/23/24 13:40 Pre-Op Diagnosis: Left Knee Degenerative Joint Disease Post-Op Diagnosis: Left Knee Degenerative Joint Disease I identified the patient and participated in the time-out.: Yes Procedure Operation Date: 07/23/24 13:40 Actual Procedures p Left Total Knee Arthroplasty(Left) - Yordy Noblse DO Surgeon Yordy Nobles DO Blood And Plasma Laboratory Assistant Dontae Hernandez PA-C Estimated Blood Loss 30 Findings Consistent with Post-Op Diagnosis Specimens Left knee replacement Description of Procedure Implants used: I used a Renata Persona total knee arthroplasty system with a size 9 standard femur, F tibia, 34 oval patella, and a size 12 medial congruent polyethylene thierry ring. All components were cemented in place with Biomet cement. Myke arrived [facility] for the above procedure. He was seen in the preoperative holding area and the operative extremity was identified and signed. He was given a preoperative antibiotic, TXA, a spinal anesthetic and an adductor nerve block. He was taken back to the operating room and laid on the table in supine position. He was given basic sedation. The operative knee was then prepped and draped in sterile fashion. A timeout was done, and the patient and the operative extremity was properly identified. A midline incision was made directly over the patella. Dissection was taken down to the extensor mechanism. A medial parapatellar arthrotomy was used. The medial retinaculum was released and the fat pad was mostly excised. The knee was flexed and the ACL, PCL, and meniscus were removed. A drill was sent down the center of the femoral canal followed by an intramedullary leela. Off that leela a distal femoral cutting block was placed. 9 mm was resected off the distal femur at 5 of valgus. A posterior referencing AP sizing guide was then placed on the distal femur. The femur measured to be a size 9. 2 drill holes were placed in 3 of external rotation. A 4-in-1 cutting block was then impacted into place. Anterior, posterior, and chamfer cuts were then made. The proximal tibia was then exposed. An external tibial alignment guide was placed. A tibial cut guide was then anchored in place and the proximal tibia was then resected. The posterior aspect of the knee was then opened up and any additional meniscus fragments and osteophytes were removed. The tibia measured to be a size F. The tibial plate was then placed in the appropriate rotation and the tibia was drilled and punched. Trial components were then placed. I used a size 12 medial congruent polyethylene insert. The knee was brought through a full range of motion and felt to be stable. The peg holes for the femoral component were then drilled. The patella was then everted and 9 mm was resected off the posterior aspect of the patella. The patella measured to be a size 34 oval. 3 peg holes were then drilled. A trial patella was placed. The knee was once again brought through a full range of motion and felt to be stable. Trial components were then removed. The surrounding soft tissues were injected with 100 cc of an orthopedic pain control cocktail. All components were then cemented into place with Biomet cement. The final polyethylene insert was then snapped into place. Once cement was dry the tourniquet was deflated. Hemostasis was obtained. A dilute betadyne lavage was then done for 3 minutes. The joint was then irrigated with normal saline solution. The medial parapatellar arthrotomy was then closed with #1 Vicryl suture. The skin was closed with 2-0 Vicryl, 3-0V lock suture, and juan. A soft compressive dressing was placed. He was then transferred to a hospital bed and taken to the postanesthesia care unit in stable condition. He tolerated the procedure well. Dontae Hernandez PA-C, was present for the entire procedure. He was critical for patient positioning, prepping, draping, retraction exposure, wound closure and application of sterile dressing. I attest to the content of the Intraoperative Record and any orders documented therein. Any exceptions are noted below.
--- NOTE | 2024-07-23 15:48 | Anesthesiology Progress Note ---
Date of Service July 23, 2024 Anesthesia Post Procedure Vital Signs Vital Signs: Temp Pulse Pulse Resp BP Pulse Ox O2 Del Method 07/23/24 15:45 61 17 118/74 95 Room Air 07/23/24 15:35 72 17 124/74 95 Room Air 07/23/24 15:27 36.2 C L 73 16 126/74 97 Room Air 07/23/24 12:04 36.6 C 61 18 139/91 96 Room Air Pain Intensity Left Knee: Pain Intensity: 1 Transfer of Care Handoff Completed per policy Notes Mental Status: alert / awake / arousable Patient Amnestic to Procedure: Yes Nausea / Vomiting: adequately controlled Pain: adequately controlled Airway Patency, RR, SpO2: stable & adequate BP & HR: stable & adequate Hydration State: stable & adequate Neuraxial Anesthesia: was administered and sensory block is resolving Anesthetic Complications: no major complications apparent and Pt Satisfied with anesthetic care
--- NOTE | 2024-07-23 15:59 | XRay Report ---
XR knee LT 1 or 2V routine CLINICAL HISTORY: Surgical Post Op TECHNIQUE: 2 views of the left knee were obtained. Comparison: Comparison is made to knee radiographs 05/23/2024 FINDINGS: Patient is status post total knee arthroplasty with expected postsurgical changes including soft tiss ue swelling and subcutaneous emphysema. No periarticular lucency or hardware fracture is seen. IMPRESSION: Expected postoperative appearance status post placement of total knee arthroplasty. ACT 112: Negative or not required by law. Electronically signed by: Mahendra Perkins M.D. 07/23/2024 3:58 PM
[2024-07-23] MEDS: KETOROLAC TROMETHAMINE 15 MG/ML VIAL IV SCH (17:20)
[2024-07-23] MEDS: oxyCODONE HCL IR 5 MG TAB (IMMEDIATE RELEASE) PO PRN (18:18)
[2024-07-23] MEDS ORDERED: ceFAZolin 1000MG 1,000 MG/7.5 ML SYR IV SCH (20:45)
[2024-07-23] MEDS: DOCUSATE SODIUM 100 MG CAP PO SCH (23:05)
[2024-07-23] MEDS: SENNA 8.6 MG TAB PO SCH (23:06)
[2024-07-23 23:26] VITALS: O2SAT 97
[2024-07-24] MEDS: ASPIRIN 81 MG ECTAB PO SCH (00:21)
--- NOTE | 2024-07-24 06:04 | Orthopedic Progress Note ---
Date of Service July 24, 2024 Assessment & Plan (1) Status post left knee replacement: Overall he is doing very well. He is not having much pain in the left knee. He will be seen by physical therapy today for ambulation and range of motion exercises. He is on aspirin for DVT prophylaxis. The nursing staff can change his dressing after physical therapy. He can be discharged to home later today. He will follow-up orthopedics in 2 weeks. Ramses Stringer was seen and examined at bedside this morning. Overall he is doing very well. He is not having much pain in the left knee. He has been up and ambulating to the bathroom. He is no complaints.. Review of Systems All systems reviewed & are unremarkable except as noted in HPI & below. Physical Exam On physical exam of the left knee, the dressing is clean and dry. His leg is out full extension. He has active dorsiflexion plantarflexion of his left ankle.. Results & Data Results & Data Laboratory Results . Diagnostic Findings Postoperative x-rays of the left knee show the prosthesis to be in anatomic alignment without any evidence of fracture, dislocation, or loosening.. PG Care Time/CCT Total # of Minutes Spent Total Time Spent with Patient: Total time spent is greater than 50% in coordination of care (as documented) at patient's floor/unit and/or counseling patient: Coding Level of Care Code 57410 Post Operative Follow-Up Diagnoses Status post left knee replacement Z96.652
--- NOTE | 2024-07-24 06:05 | Discharge Summary ---
Date of Service July 24, 2024 Admission HPI (Per Admitting) Myke is a pleasant 59-year-old male who has been dealing with chronic increasing left knee pain. Initial x-rays did not look too bad, so he was sent in for an MRI. The MRI did show a [id number] chondromalacia of the knee. 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 After failing extensive conservative treatment, he has elected to proceed with a left total knee arthroplasty. . Admission Exam (Per Admitting) On physical exam the left knee, he is a slight varus deformity. Tenderness palpation of the distal medial femoral condyle and over the medial joint line.. Principal Diagnosis Same as "Discharge Diagnosis" noted below under Discharge Instructions. Discharge Exam On physical exam of the left knee, the dressing is clean and dry. His leg is out full extension. He has active dorsiflexion plantarflexion of his left ankle.. Discharge Data Procedures Performed Operation Date: 07/23/24 13:40 Actual Procedures p Left Total Knee Arthroplasty(Left) - Yordy Nobles DO Ordered Studies 07/23/24 05:00 US - OR guided needle placemen Routine Hospital Course (1) Status post left knee replacement: On July 23, 2024 Myke arrived at [facility] and underwent a left knee replacement without complication. He had a spinal anesthetic. Postoperatively he was started on aspirin for DVT prophylaxis and transferred to the general orthopedic floors. His hospital course was uneventful. On postop day #1, his vital signs were stable and his pain was well-controlled. He was able to participate well with physical therapy doing ambulation and range of motion exercises. He was then discharged to home. He will follow with orthopedics in 2 weeks. PG Care Time/CCT Total # of Minutes Spent Total Time Spent with Patient: Total time spent is greater than 50% in coordination of care (as documented) at patient's floor/unit and/or counseling patient: Discharge Plan Discharge Items Patient Disposition: Home - Self-Care Reason For Visit: Left Knee Arthritis Discharge Diagnosis: Left knee replacement Activity: Per Instructions section Non-emergency contact: Surgeon Call non-emergency contact if: your wound has increased redness and your wound has increased drainage Follow-up/Referrals: Marnie Witt DO [Primary Care Provider] - Diet: Regular Addtl Attending Provider Instructions: Activity and Therapy Recommendations: * If you are using [facility] then therapy will be provided at your home until they feel you have accomplished all of your goals. * If you are using [facility] then Physical Therapy will be provided until they feel you are ready to start Outpatient Physical Therapy. * If you are not using home therapy then Outpatient Physical Therapy should start about 3-5 days from your day of surgery. Therapy will last about 6-10 weeks * It is important not to put a pillow under your knee when you are relaxing or sleeping. It is just as important to make sure you are getting your knee perfectly straight as it is to regain your knee bend. * You were shown a series of exercises in the hospital. Do these exercises three times each day including the exercises you were shown in physical therapy. * Get up and walk several times each day. For the first four weeks, try not to stand or walk for more than one hour at a time. If you do stand or walk for more than one hour, you will not hurt anything, but your leg will likely swell. * As you feel comfortable, you may change from the walker or crutches to a cane and then to independent walking. Medications: * Narcotic You will likely be sent home from the hospital with a prescription for the narcotic pain medication that worked best throughout your stay. * Cefadroxil -take the antibiotic twice a day for 10 days to help prevent infection. * Aspirin Most patients will be required to take Aspirin 81mg twice a day for 6 weeks after surgery. This is obtained [id number] and a prescription is not necessary. * Other medications may be prescribed for specific circumstances. If you have any questions, please call the office at . * Resume previous home medications unless otherwise instructed TEDs/Elastic Stockings: The white elastic stockings help limit swelling and prevent blood clots from forming in your legs.~ The more you wear them, the more they work. Wear them for six weeks. Dressing Care: The dressing can be changed after physical therapy on postop day #1. Daily dry dressing changes for a few days, especially if the incision is still draining some. If the incision is not draining then you may leave the juan open to air. If there is a little bit of drainage or if the juan are getting stuck on your clothing then cover the incision with a dry dressing. The juan will be removed at your 2 week follow-up appointment. Showering: You may shower 5 days from the day of surgery as long as the incision is no longer draining. You may shower with the juan exposed. Let soapy water run over the juan and pat them dry. Do not scrub or soak the incision. Diet: You may resume your previous diet. Things To Watch For: * Drainage from the incision site that occurs more than one week after your surgery. * Increased redness at the incision site. * Fever above 102 degrees Fahrenheit. * Unusual chest pain or shortness of breath. * Call [facility] at with any of the above problems Follow-Up Visit: Follow-up with Dr. Nobles's office 2-3 weeks after your day of surgery. We will remove your juan and answer any questions. If you have any additional questions or concerns, Dr Nobles is usually in the office at the same time and will be available An appointment was probably scheduled when you signed-up for surgery in the office. If you have any questions call Office Instructions: More detailed instructions as well as Frequently Asked Questions were provided in a folder by our office when you signed-up for surgery. Please review these instructions when you get home. If you have any further questions or concerns, please feel free to call the office at [phone] Pending Studies at Discharge: No Stand-Alone Forms: My [facility] Medications and DC Order Prescriptions: New oxycodone 5 mg tablet 5 mg PO Q6H PRN (Reason: pain) Qty: 30 0RF cefadroxil 500 mg capsule 500 mg PO BID 10 Days Qty: 20 0RF aspirin [Adult Aspirin Regimen] 81 mg tablet,delayed release (DR/EC) 81 mg PO BID Qty: 84 0RF Continued multivitamin Tablet 1 tab PO QAM omeprazole magnesium [Prilosec OTC] 20 mg Tablet,Delayed Release (Dr/Ec) 20 mg PO QAM celecoxib [Celebrex] 100 mg capsule 100 mg PO BID PRN (Reason: Pain) Rx Instructions: take 1 tab twice daily for 2 weeks, then as needed after that Creatine Tablets 3 tab PO BID Discharge Orders: Discharge Order (Routine); Ordered 12/24/24 Ordered By: Yordy Nobles Admission Data Admit Date/Time: 07/23/24 14:33 Attending Provider: Yordy Nobles Admit Provider: Yordy Nobles Primary Care Provider: Marnie Witt
[2024-07-24 07:59] VITALS: BP 132/84; PULSE 85; RESP 16; TEMP 97.9
[2024-07-24] MEDS: PANTOprazole 40 MG TAB PO SCH (08:13)
[2024-07-24] MEDS: MULTIVITAMIN TAB PO SCH ×2 (08:14→08:15)
[2024-07-24] MEDS: dexAMETHasone 4 MG TAB PO SCH (08:15)
== END 2024-07-24 11:24 | disposition home or self-care (01) ==
LOC: ASU 11:07 → PACUINP 11:07 → 3E 16:42
DX: M17.12 Unilateral primary osteoarthritis, left knee; K21.9 Gastro-esophageal reflux disease without esophagitis; G47.33 Obstructive sleep apnea (adult) (pediatric); Z79.899 Other long term (current) drug therapy